=== PATIENT | female | born 1970 | race Native Hawaiian/Other Pacific Islander ===

== ENCOUNTER 2017-08-30 14:49 | Emergency (ER) | payer SELFPAY ==
[2017-08-30 17:56] LABS: Anion Gap 15 mmol/L; BUN/Creatinine Ratio 33; Blood Urea Nitrogen 10 mg/dL (7-17); Calcium 9.3 mg/dL (8.4-10.2); Carbon Dioxide 25 mmol/L (22-30); Chloride 100.5 mmol/L (98-107); Glucose 106 mg/dL (65-100); Sodium 136 mmol/L (137-145)
[2017-08-30 18:02] LABS: Basophils % (Auto) 0.3 % (0.0-1.8); Eosinophils % (Auto) 0.9 % (0.0-4.3); Hematocrit 38.3 % (30.3-42.9); Hemoglobin 12.8 gm/dl (10.1-14.3); Mean Corpuscular HGB Conc 33 % (30-34); Mean Corpuscular Hemoglobin 29 pg (28-32); Mean Corpuscular Volume 85 fl (79-97); Platelet Count 247 K/mm3 (140-440); Red Blood Count 4.49 M/mm3 (3.65-5.03); Red Cell Distribution Width 13.3 % (13.2-15.2); White Blood Count 9.8 K/mm3 (4.5-11.0)
[2017-08-30] MEDS ORDERED: NACL 0.9% 1000 ML 1,000 ML IV ONE ×2 (18:45→20:28)
--- NOTE | 2017-08-30 21:12 | XRay Report ---
FINAL REPORT EXAM: XR CHEST 1V AP HISTORY: tachycardia TECHNIQUE: upright single view chest PRIORS: None. FINDINGS: Cardiac and mediastinal contours are unremarkable. No focal pulmonary infiltrate is identified. No pleural fluid collection seen. Pulmonary vasculature is unremarkable. IMPRESSION: Negative single-view chest
[2017-08-30] MEDS ORDERED: LOPRESSOR IV ONE ×2 (21:46→22:15)
--- NOTE | 2017-08-30 23:06 | Emergency Department Report ---
ED Palpitations HPI - General Chief Complaint: Arrhythmia/Palpitations Stated Complaint: HEART RACING Time Seen by Provider: 08/30/17 18:28 Source: patient, EMS Mode of arrival: Stretcher Limitations: No Limitations - History of Present Illness Initial Comments: patient reports a fast heart beat around 10 am and also feels like she has gas. She did drink a lot of caffeine this AM, moreso than normal. She has not had a fever, cough, abdominal pain or been light headed. No chest pain. She does not report that she has been sick. MD Complaint: rapid heart beat -: Sudden Context: occured during rest Associated Symptoms: denies other symptoms - Related Data Allergies Allergy/AdvReac Type Severity Reaction Status Date / Time aspirin Allergy Unknown Verified 08/30/17 17:06 ED Review of Systems ROS: Stated complaint: HEART RACING Other details as noted in HPI Constitutional: denies: chills, fever Eyes: denies: eye pain, eye discharge, vision change ENT: denies: ear pain, throat pain Respiratory: denies: cough, shortness of breath, wheezing Cardiovascular: palpitations. denies: chest pain Endocrine: no symptoms reported Gastrointestinal: other (increased gas). denies: abdominal pain, nausea, diarrhea Genitourinary: denies: urgency, dysuria, discharge Musculoskeletal: denies: back pain, joint swelling, arthralgia Skin: denies: rash, lesions Neurological: denies: headache, weakness, paresthesias Psychiatric: denies: anxiety, depression Hematological/Lymphatic: denies: easy bleeding, easy bruising ED Past Medical Hx - Past Medical History Hx Hypertension: Yes Hx Asthma: Yes - Surgical History Past Surgical History?: Yes Additional Surgical History: T&A - Social History Smoking Status: Never Smoker Substance Use Type: None ED Physical Exam - General Limitations: No Limitations General appearance: alert, in no apparent distress - Head Head exam: Present: atraumatic, normocephalic - Eye Eye exam: Present: normal appearance - ENT ENT exam: Present: mucous membranes moist - Neck Neck exam: Present: normal inspection - Respiratory Respiratory exam: Present: normal lung sounds bilaterally. Absent: respiratory distress - Cardiovascular Cardiovascular Exam: Present: regular rate, normal rhythm. Absent: systolic murmur, diastolic murmur, rubs, gallop - GI/Abdominal GI/Abdominal exam: Present: soft, normal bowel sounds - Extremities Exam Extremities exam: Present: normal inspection - Back Exam Back exam: Present: normal inspection - Neurological Exam Neurological exam: Present: alert, oriented X3 - Psychiatric Psychiatric exam: Present: normal affect, normal mood - Skin Skin exam: Present: warm, dry, intact, normal color. Absent: rash ED Course Vital Signs 08/30/17 08/30/17 08/30/17 17:06 20:09 20:12 Temperature 98.1 F 98.5 F Pulse Rate 108 H 112 H 112 H Respiratory 14 Rate Blood Pressure 149/84 Blood Pressure 155/74 [Left] O2 Sat by Pulse 100 98 Oximetry 08/30/17 08/30/17 08/30/17 20:16 20:30 20:46 Temperature Pulse Rate 103 H 113 H 110 H Respiratory 13 19 19 Rate Blood Pressure 155/74 155/74 155/74 Blood Pressure [Left] O2 Sat by Pulse 97 98 97 Oximetry 08/30/17 08/30/17 08/30/17 21:00 21:16 21:30 Temperature Pulse Rate 102 H 106 H 108 H Respiratory 13 13 16 Rate Blood Pressure 158/77 158/77 158/77 Blood Pressure [Left] O2 Sat by Pulse 99 98 99 Oximetry 08/30/17 08/30/17 08/30/17 21:46 22:04 22:05 Temperature Pulse Rate 108 H 94 H Respiratory 18 14 Rate Blood Pressure 158/77 158/77 Blood Pressure 146/81 [Left] O2 Sat by Pulse 99 99 98 Oximetry 08/30/17 22:08 Temperature Pulse Rate 85 Respiratory Rate Blood Pressure 146/81 Blood Pressure [Left] O2 Sat by Pulse Oximetry ED Medical Decision Making - Lab Data Result diagrams: 08/30/17 17:30 08/30/17 17:36 unremarkable labs other than BUN/Cr ratio elevated. - EKG Data EKG shows normal: sinus rhythm Rate: tachycardia - EKG Data Interpretation: normal EKG 08/30/17 23:05 Two EKGs were done. Initially with HR of 114 and then with HR of 85 after 2 L NS. Initially EKG had minimal ST depression in the inferior leads but were normal after 2 L and regular rate. 08/30/17 23:07 - Radiology Data Radiology results: report reviewed CXR with no acute process. - Medical Decision Making Patient with dehydration and caffeine use. Will hydrate and reduce caffeine. She feels well and labs were normal. She is okay to go home. Critical care attestation.: If time is entered above; I have spent that time in minutes in the direct care of this critically ill patient, excluding procedure time. ED Disposition Clinical Impression: Dehydration, moderate, Tachycardia Caffeine adverse reaction Qualifiers: Encounter type: initial encounter Qualified Code(s): T43.615A - Adverse effect of caffeine, initial encounter Disposition: DC-01 TO HOME OR SELFCARE Is pt being admited?: No Does the pt Need Aspirin: No Condition: Good Instructions: Anxiety (ED), Dehydration (ED) Referrals: [facility] [Outside] - 3-5 Days Time of Disposition: 23:11
[2017-08-30 23:44] VITALS: BP 139/79
== END 2017-08-31 00:01 | disposition home or self-care (01) ==
LOC: ED 14:49
DX: E86.0 Dehydration (principal); R00.0 Tachycardia, unspecified; T43.615A Adverse effect of caffeine, initial encounter; J45.909 Unspecified asthma, uncomplicated; I10 Essential (primary) hypertension; Z88.6 Allergy status to analgesic agent; Y93.89 Activity, other specified; Y99.8 Other external cause status; Y92.89 Other specified places as the place of occurrence of the external cause
CPT/HCPCS: 36415; 71010; 80048; 84443; 84484; 84703; 85025; 93005; 93010; 96361; 96374; 99285; J7030